=== PATIENT | male | born 1945 | race African-American/Black ===

== ENCOUNTER 2022-11-10 14:12 | Observation (INO) ==
[2022-11-10] MEDS ORDERED: SODIUM CHLORIDE 0.9% 1,000 ML IV STA (15:02)
[2022-11-10] MEDS ORDERED: cloNIDine 0.1 MG TABLET PO STA (15:03)
[2022-11-10 15:21] LABS: Basophils % 0.2 % (0.0-0.8); Eosinophils % 0.2 % (0.00-10.9); Hematocrit 47.8 VOL% (42.0-52.0); Hemoglobin 16.6 GM/DL (14.0-18.0); Immature Granulocytes % 0.2 %; Immature Granulocytes Absolute 0.01 #; Lymphocytes # 0.6 10*3/uL (1.4-4.0); Lymphocytes % 8.4 % (21.2-54.2); Mean Corpuscular HGB Conc 34.7 GM/DL (32-36); Mean Corpuscular Volume 88.4 FL (87-102); Mean Platelet Volume 9.8 FL (9.6-12.0); Monocytes # 0.2 10*3/uL (0.11-0.8); Monocytes % 3.3 % (1.7-12.7); Neutrophils % 87.7 % (38.7-73.9); Platelet Count 214 T/CUMM (130-400); Red Blood Count 5.41 MC/CUMM (3.8-5.5); Red Cell Distribution Width 13.4 % (9.3-17.3); White Blood Count 6.63 T/CUMM (4-12)
[2022-11-10 15:38] LABS: PT Patient Result 10.9 SECS (10.1-12.1); Partial Thromboplastin Time 28.6 SECS (23.7-32.9)
[2022-11-10 16:01] LABS: Calcium 9.8 MG/DL (8.5-10.1); Osmolality,Calculated 280.8 MOS/KG (273-304); Potassium 4.5 MMOL/L (3.5-5.1)
[2022-11-10] MEDS ORDERED: ACETAMINOPHEN 325 MG TABLET PO PRN (17:37)
[2022-11-10] MEDS ORDERED: ONDANSETRON 4 MG/2 ML VIAL IV PRN (17:37)
[2022-11-10 18:08] LABS: Thyroid Stimulating Hormone 0.327 uIU/ml (0.358-3.74)
[2022-11-10] MEDS ORDERED: METHOCARBAMOL 750 MG TABLET PO PRN (18:12)
[2022-11-10] MEDS ORDERED: amLODIPine 5 MG TABLET PO STA (18:14)
[2022-11-10] MEDS: LACTATED RINGERS 1,000 ML IV SCH (20:01)
[2022-11-10] MEDS ORDERED: MAGNESIUM HYDROXIDE SUSP 30 ML UDCUP PO ONE (23:00)
[2022-11-10] MEDS: PANTOPRAZOLE 40 MG VIAL IV SCH (23:08)
[2022-11-10] MEDS: hydrOXYzine HCL 10 MG TABLET PO SCH (23:08)
[2022-11-10 23:12] LABS: Hematocrit 44.6 VOL% (42.0-52.0); Hemoglobin 15.2 GM/DL (14.0-18.0)
[2022-11-11] MEDS: LACTATED RINGERS 1,000 ML IV SCH ×3 (05:25→17:28)
[2022-11-11 05:50] LABS: Basophils % 0.2 % (0.0-0.8); Eosinophils % 0.2 % (0.00-10.9); Hematocrit 41.4 VOL% (42.0-52.0); Hemoglobin 14.1 GM/DL (14.0-18.0); Immature Granulocytes % 0.4 %; Immature Granulocytes Absolute 0.02 #; Lymphocytes # 0.9 10*3/uL (1.4-4.0); Lymphocytes % 20.6 % (21.2-54.2); Mean Corpuscular HGB Conc 34.1 GM/DL (32-36); Mean Corpuscular Volume 88.8 FL (87-102); Mean Platelet Volume 9.7 FL (9.6-12.0); Monocytes # 0.5 10*3/uL (0.11-0.8); Monocytes % 10.2 % (1.7-12.7); Neutrophils % 68.4 % (38.7-73.9); Platelet Count 152 T/CUMM (130-400); Red Blood Count 4.66 MC/CUMM (3.8-5.5); Red Cell Distribution Width 13.6 % (9.3-17.3); White Blood Count 4.51 T/CUMM (4-12)
[2022-11-11 06:12] LABS: Calcium 9.2 MG/DL (8.5-10.1); Osmolality,Calculated 279.7 MOS/KG (273-304); Potassium 3.5 MMOL/L (3.5-5.1)
[2022-11-11] MEDS: amLODIPine 10 MG TABLET PO SCH (08:36)
[2022-11-11] MEDS: BISACODYL 5 MG TABLET PO SCH ×3 (08:36→22:39)
[2022-11-11] MEDS: PANTOPRAZOLE 40 MG VIAL IV SCH ×2 (08:37→22:41)
[2022-11-11] MEDS: SIMVASTATIN 40 MG TABLET PO SCH (08:37)
[2022-11-11] MEDS ORDERED: POLYETHYLENE GLYCOL 3350/ELECTROLYTES 4,000 ML BOTTLE PO ONE (18:00)
[2022-11-11] MEDS: hydrOXYzine HCL 10 MG TABLET PO SCH (22:39)
[2022-11-12] MEDS: LACTATED RINGERS 1,000 ML IV SCH ×2 (02:08→03:54)
[2022-11-12] MEDS ORDERED: MAGNESIUM SULF RIDER 2 GM/50 ML PREMIX IV ONE (07:49)
[2022-11-12] MEDS ORDERED: LIDOCAINE 2% 5 ML VIAL ONE (07:57)
[2022-11-12] MEDS ORDERED: propofoL 200 MG/20 ML VIAL IV ONE ×2 (07:57→08:07)
[2022-11-12] MEDS: SIMVASTATIN 40 MG TABLET PO SCH (09:38)
[2022-11-12] MEDS: amLODIPine 10 MG TABLET PO SCH (09:39)
[2022-11-12] MEDS: PANTOPRAZOLE 40 MG VIAL IV SCH (09:39)
[2022-11-12 10:15] LABS: Basophils % 0.2 % (0.0-0.8); Eosinophils # 0.1 10*3/uL (0.0-0.87); Eosinophils % 1.1 % (0.00-10.9); Hematocrit 39.7 VOL% (42.0-52.0); Hemoglobin 13.6 GM/DL (14.0-18.0); Immature Granulocytes % 0.2 %; Immature Granulocytes Absolute 0.01 #; Lymphocytes # 1.6 10*3/uL (1.4-4.0); Mean Corpuscular HGB Conc 34.3 GM/DL (32-36); Mean Platelet Volume 9.9 FL (9.6-12.0); Monocytes # 0.4 10*3/uL (0.11-0.8); Monocytes % 9.5 % (1.7-12.7); Platelet Count 167 T/CUMM (130-400); Red Blood Count 4.41 MC/CUMM (3.8-5.5); Red Cell Distribution Width 13.5 % (9.3-17.3); White Blood Count 4.52 T/CUMM (4-12)
[2022-11-12 15:52] VITALS: BP 120/72
== END 2022-11-12 18:07 | disposition home or self-care (01) ==
LOC: N.EDINP 14:12 → N.ED 14:12 → SUATTDRO 17:35 → N.EDINP 22:00 → N.2W 22:31
PROVIDERS: ADMIT Internal Medicine; ATTEND Internal Medicine